=== PATIENT | female | born 1940 | race Caucasian/White ===

== ENCOUNTER → 2020-04-18 | Outpatient (CLI) | payer OTHER ==
[~2020-04-18] MED LIST: AUGMENTIN 875875 MG PO; CARDIZEM CD120 MG PO; FLECAINIDE ACET50 M1 PO; IBUPROFEN 200200 M1 PO; LEVAQUIN 500 M500 M1 PO; LEVAQUIN 500 M500 M2 PO; LORTAB 5-500 T1 EAC1 PO; MELATONIN5 M1 PO; REMERON15 MG PO; SIMVASTATIN20 MG PO; TRAVATAN Z2.5 ML OPHTHALMIC; TRAZODONE 150150 M1 PO; WAL-FINATE4 MG PO
== END ==
LOC: M.CT 08:16
PROVIDERS: ATTEND Family Medicine
DX: K86.1 Other chronic pancreatitis (principal); J43.9 Emphysema, unspecified; K76.89 Other specified diseases of liver; M47.814 Spondylosis without myelopathy or radiculopathy, thoracic region; M48.54XA Collapsed vertebra, not elsewhere classified, thoracic region, initial encounter for fracture; E83.59 Other disorders of calcium metabolism